=== PATIENT | male | born 1965 | race Caucasian/White ===

== ENCOUNTER 2020-04-06 12:02 | Emergency (ER) | payer BC, SELFPAY ==
[2020-04-06] VITALS (7 sets, daily range): BP systolic 138–156; BP diastolic 68–98; PULSE 55–75; RESP 14–18; TEMP 36.8; O2SAT 96–99
--- NOTE | 2020-04-06 13:51 | ECG_ITS ---
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
--- NOTE | 2020-04-06 14:39 | W.ED.CHESTPA ---
HPI - Chest Pain General: Chief Complaint: Chest Pain Stated Complaint: phy ref/abnormal ekg Time Seen by Provider: 04/06/20 14:12 History of Present Illness: HPI narrative: 84-year-old male comes in complaining of elevated blood pressures. He was seen today at his primary care doctor there were some concerns about his EKG and he was sent here to the ER. He has slightly elevated blood pressure reported at home he is in the 150 systolic range here he is not having any shortness of breath. He does not report any chest discomfort or shortness of breath with exertion. No diaphoresis. No previous cardiac evaluation. His last episode of actual chest discomfort was yesterday, which she correlated with elevated blood pressure. He recently had some blood pressure medication changes as well. Currently on his list he is only taking hydrochlorothiazide for blood pressure. Pertinent past history: other (Hypertension) Onset (ago): day(s) Timing of current episode: episodic and now resolved Onset: during rest Pain location: substernal Pain radiation: none Severity: mild Quality: heaviness Relieving factors: nothing Exacerbating factors: nothing Associated symptoms: Deny abdominal pain, diaphoresis, dyspnea, fever(s), leg edema, nausea, palpitations, sense of impending doom, syncope or vomiting Treatment prior to arrival: none Review of Systems Const: Denies: fever(s) or diaphoresis ENMT: Denies: throat pain, ear or mastoid pain, nasal discharge or nasal congestion Card: Denies: palpitations or syncope Resp: Denies: dyspnea GI: Denies: abdominal pain, nausea or vomiting : Denies: flank pain, dysuria, urinary frequency or urinary urgency Skin/Breast: Denies: rash or pruritus Physical Exam Const: COMMON NORMALS: no acute distress GENERAL APPEARANCE: cooperative and comfortable ORIENTATION/CONSCIOUSNESS: Yes awake, Yes oriented to person, Yes oriented to place and Yes oriented to time HENMT: COMMON NORMALS: normocephalic, atraumatic and hearing grossly normal bilaterally HEAD & SCALP: normocephalic and atraumatic Neck/C-Spine: COMMON NORMALS: no JVD Resp: COMMON NORMALS: normal respiratory effort, No retractions, No use of accessory muscles and clear to auscultation bilaterally AUSCULTATION: clear to auscultation bilaterally Cardio: COMMON NORMALS: no JVD, regular rate, regular rhythm and No murmurs present (Cardio) RATE: regular rate RHYTHM: regular rhythm GI: COMMON NORMALS: Soft to palpation and No hepatosplenomegaly present AUSCULTATION: Yes normoactive bowel sounds PALPATION: Yes Soft to palpation, No Tenderness to palpation present (GI), No Guarding due to palpation present (GI) and Yes No hepatosplenomegaly present Extremity: COMMON NORMALS: normal to inspection, capillary refill normal, no clubbing, cyanosis or edema, no calf tenderness and no pedal edema Neuro: SENSORIUM/ORIENTATION: Yes oriented to person, Yes oriented to place and Yes oriented to time Skin: COMMON NORMALS: no rashes or lesions noted GENERAL SKIN EXAM: no rashes or lesions noted Course Vital Signs: Vital signs: Vital Signs Temperature 98.2 F 04/06/20 12:45 Pulse Rate 75 04/06/20 18:21 Respiratory Rate 17 04/06/20 18:21 Blood Pressure 148/68 04/06/20 18:21 Pulse Oximetry 96 04/06/20 18:21 MDM - Chest Pain MDM Narrative: Medical decision making narrative: Small Q waves in the inferior leads but nothing that looks acute he is asymptomatic this time we will go ahead and discharge him home and get him set up for outpatient sestamibi stress test. And recommend that he stop his hydrochlorothiazide and instead take the isosorbide mononitrate along with aspirin daily. Lab Data: Labs: Lab Results 04/06/20 04/06/20 04/06/20 Range/Units 14:48 14:48 14:48 WBC 7.2 (4.0-10.0) 10^3/ uL RBC 5.18 (4.1-5.3) 10^6/u L Hgb 14.5 (11.7-16.6) g/dL Hct 45.5 (42.0-52.0) % MCV 87.8 (80-94) fL MCH 28.0 (28.0-34.0) pg MCHC 31.9 (30.0-36.0) g/dL RDW 13.1 (12.1-15.1) % Plt Count 271 (130-400) 10^3/c mm MPV 9.8 (7.4-10.4) fL Neut % (Auto) 55.1 % Lymph % (Auto) 33.7 % Mccormick % (Auto) 6.4 % Eos % (Auto) 3.2 % Baso % (Auto) 1.3 % Neut # (Auto) 3.94 (1.8-7.7) 10^3/u L Lymph # (Auto) 2.4 (0.8-4.8) 10^3/u L Mccormick # (Auto) 0.5 (0.2-0.9) 10^3/u L Eos # (Auto) 0.2 (0.0-0.8) 10^3/u L Baso # (Auto) 0.1 (0.0-0.1) 10^3/u L Nucleated RBC % (a uto) 0 % Nucleated RBCs # 0.0 /100WBC Sodium 140 (136-145) mmol/L Potassium 4.8 (3.5-5.1) mmol/L Chloride 104 (98-107) mmol/L Carbon Dioxide 28 (22-29) mmol/L Anion Gap 12.8 (5-19) BUN 21 H (6-20) mg/dL Creatinine 1.6 H (0.7-1.2) mg/dL GFR Calculation 45.3 L (90-130) mL/min Glucose 140 H (65-115) mg/dL Calculated Osmolal ity 295 (285-295) mOsm/k g Calcium 9.5 (8.5-10.5) mg/dL Total Bilirubin 0.4 (0.15-1.2) mg/dL AST 17 (0-40) U/L ALT 14 (0-41) U/L Alkaline Phosphata se 80 (40-130) IU/L Troponin T Baselin e 9 (0-15) ng/L Troponin T 120 Min [place] (0-15) ng/L Delta Troponin T (0-10) ABS# Troponin T Hi Sens 6Hr Troponin T Hi Sens 6Hr Delta Total Protein 7.1 (6.6-8.7) g/dL Albumin 4.4 (3.5-5.2) g/dL Globulin 2.7 (1.3-4.6) g/dL 04/06/20 04/06/20 Range/Units 16:48 20:48 WBC (4.0-10.0) 10^3/ uL RBC (4.1-5.3) 10^6/u L Hgb (11.7-16.6) g/dL Hct (42.0-52.0) % MCV (80-94) fL MCH (28.0-34.0) pg MCHC (30.0-36.0) g/dL RDW (12.1-15.1) % Plt Count (130-400) 10^3/c mm MPV (7.4-10.4) fL Neut % (Auto) % Lymph % (Auto) % [place] % (Auto) % Eos % (Auto) % Baso % (Auto) % Neut # (Auto) (1.8-7.7) 10^3/u L Lymph # (Auto) (0.8-4.8) 10^3/u L [place] # (Auto) (0.2-0.9) 10^3/u L Eos # (Auto) (0.0-0.8) 10^3/u L Baso # (Auto) (0.0-0.1) 10^3/u L Nucleated RBC % (a uto) % Nucleated RBCs # /100WBC Sodium (136-145) mmol/L Potassium (3.5-5.1) mmol/L Chloride (98-107) mmol/L Carbon Dioxide (22-29) mmol/L Anion Gap (5-19) BUN (6-20) mg/dL Creatinine (0.7-1.2) mg/dL GFR Calculation (90-130) mL/min Glucose (65-115) mg/dL Calculated Osmolal ity (285-295) mOsm/k g Calcium (8.5-10.5) mg/dL Total Bilirubin (0.15-1.2) mg/dL AST (0-40) U/L ALT (0-41) U/L Alkaline Phosphata se (40-130) IU/L Troponin T Baselin e (0-15) ng/L Troponin T 120 Min [place] 8.08 (0-15) ng/L Delta Troponin T -0.92 L (0-10) ABS# Troponin T Hi Sens 6Hr Cancelled Troponin T Hi Sens 6Hr Delta Cancelled Total Protein (6.6-8.7) g/dL Albumin (3.5-5.2) g/dL Globulin (1.3-4.6) g/dL Discharge Plan Discharge Patient Disposition: Home Clinical Impression: Atypical chest pain Condition: Stable Prescriptions: New isosorbide mononitrate 30 mg tablet extended release 24 hr 30 mg PO DAILY Qty: 14 RF: 0 aspirin 81 mg tablet,delayed release (DR/EC) 81 mg PO DAILY Qty: 30 RF: 0 Discontinued hydrochlorothiazide 25 mg tablet 25 mg PO DAILY RF: 0 No Action allopurinol 100 mg tablet 100 mg PO DAILY RF: 0 simvastatin 20 mg tablet 20 mg PO DAILY RF: 0 Discharge Orders: Discharge Order (Routine); Ordered 04/06/20 Ordered By: Daniel Gallegos Discharge Diet: Usual diet Discharge Activity: Limit activity as instructed Activity Restrictions/Additional Instructions: Case management will call to arrange for an outpatient graded exercise stress test Coding Level of Care Code ED Lipstick Molder for Luis Fwfrancis Exam Comprehensive
[2020-04-06 14:57] LABS: Basophils # 0.1 10^3/uL (0.0-0.1); Basophils % 1.3 %; Eosinophils # 0.2 10^3/uL (0.0-0.8); Eosinophils % 3.2 %; Hematocrit 45.5 % (42.0-52.0); Hemoglobin 14.5 g/dL (11.7-16.6); Lymphocytes # 2.4 10^3/uL (0.8-4.8); Lymphocytes % 33.7 %; Mean Corpuscular HGB Conc 31.9 g/dL (30.0-36.0); Mean Corpuscular Volume 87.8 fL (80-94); Mean Platelet Volume 9.8 fL (7.4-10.4); Monocytes # 0.5 10^3/uL (0.2-0.9); Monocytes % 6.4 %; Neutrophils # 3.94 10^3/uL (1.8-7.7); Neutrophils % 55.1 %; Nucleated Red Blood Cells % 0 %; Platelet Count 271 10^3/cmm (130-400); Red Blood Count 5.18 10^6/uL (4.1-5.3); Red Cell Distribution Width 13.1 % (12.1-15.1); White Blood Count 7.2 10^3/uL (4.0-10.0)
[2020-04-06 15:14] LABS: Alanine Aminotransferase 14 U/L (0-41); Albumin Level 4.4 g/dL (3.5-5.2); Alkaline Phosphatase 80 IU/L (40-130); Anion Gap 12.8 (5-19); Aspartate Amino Transferase 17 U/L (0-40); Blood Urea Nitrogen 21 mg/dL (6-20); Calcium 9.5 mg/dL (8.5-10.5); Carbon Dioxide 28 mmol/L (22-29); Chloride 104 mmol/L (98-107); Globulin 2.7 g/dL (1.3-4.6); Glomerular Filtration Rate 45.3 mL/min (90-130); Glucose 140 mg/dL (65-115); Osmolality Calculated 295 mOsm/kg (285-295); Potassium 4.8 mmol/L (3.5-5.1); Sodium 140 mmol/L (136-145); Total Bilirubin 0.4 mg/dL (0.15-1.2); Total Protein 7.1 g/dL (6.6-8.7)
[2020-04-06 15:15] LABS: Troponin(5th) Baseline 9 ng/L (0-15)
--- NOTE | 2020-04-06 15:51 | ECG_ITS ---
[facility] Test Date: 2020-04-06 Pat Name: Russell Hwang Department: Room: Gender: Male Medical Device Sales: : 1965 Requested By: Daniel Grewal Order Number: [id number] Reading MD: JESUS TAVAREZ Measurements Intervals Fine Rate: 57 P: 40 MN: 137 QRS: 55 QRSD: 118 T: 41 QT: 403 QTc: 393 Interpretive Statements SINUS BRADYCARDIA POSSIBLE INFERIOR MYOCARDIAL INFARCTION , PROBABLY OLD [30 ms Q WAVE IN II/aVF] Compared to ECG 04/06/2020 12:43:04 Myocardial infarct finding now present Electronically Signed On 04-06-2020 17:32:09 SPECIAL POLICE by JESUS TAVAREZ [id number]
[2020-04-06 17:31] LABS: Troponin 5 2HR 8.08 ng/L (0-15); Troponin 5 2HR Delta -0.92 ABS# (0-10)
== END 2020-04-06 18:23 | disposition home or self-care (01) ==
PROVIDERS: Emergency Provider Family Medicine
DX: R07.89 Other chest pain (principal)
CPT/HCPCS: 12345; 80053; 84484; 85025; 93005; 99282; 99283

== ENCOUNTER 2020-06-15 12:14 | Outpatient (CLI) | payer BC, SELFPAY ==
[2020-06-15 12:18] VITALS: BMI 17.2
--- NOTE | 2020-06-15 12:20 | ECG_ITS ---
[facility] Test Date: 2020-06-15 Pat Name: Russell Hwang Department: Room: Gender: Male Manager Of Organizational Development: : 1965 Requested By: Chanda Sims Order Number: [id number] Jennifer MD: Karen Briceno M.D. Interpretive Statements NAME OF STUDY: TREADMILL STRESS TEST INDICATION: Chest Pain PROCEDURE: At the baseline, the patient's blood pressure was 152/99 with a heart rate of 86. The baseline electrocardiogram showed normal sinus rhythm with normal ST-Ts.. The patient exercised for 8 minutes and 28 seconds on a standard Zaid protocol. Patient attained a maximum heart rate of 171 beats per minute(103% of the maximum predicted heart rate) with a blood pressure at the peak exercise of mm Hg. The EKG at the peak exercise revealed no significant changes. Patient did not have any chest pain or any significant cardiac arrhythmias with the exercise During the recovery phase, there were no new changes. Blood pressure at the end of the recovery phase was 148/92 mm Hg with a heart rate of 98 per minute. CONCLUSION: 1. No significant EKG changes with the treadmill exercise 2. No exercise-induced chest pain or cardiac arrhythmia 3. Fair exercise tolerance, attained a maximum of 10.2 METs 4. No significant coronary ischemia, based on the above finding Electronically Signed On 06-18-2020 10:01:19 PHOTOENGRAVING HELPER by Karen Briceno M.D. [email or web address]
[2020-06-15 13:04] VITALS: BP 148/92; PULSE 98
== END 2020-06-15 12:15 | disposition home or self-care (01) ==
LOC: CDL 12:15
PROVIDERS: PCP Internal Medicine; Visit Provider Internal Medicine
DX: R07.9 Chest pain, unspecified (principal)
CPT/HCPCS: 93017

== ENCOUNTER → 2020-11-29 14:23 | Outpatient (BNVA) | payer BC, SELFPAY | PROVIDERS: PCP Internal Medicine; Visit Provider Nurse Practitioner Family | DX: Z20.822 Contact with and (suspected) exposure to COVID-19 (principal) | CPT/HCPCS: 87635 ==

== ENCOUNTER 2021-07-12 14:26 | Outpatient (CLI) | payer BC, SELFPAY ==
--- NOTE | 2021-07-12 14:52 | XRR_ITS ---
PROCEDURE INFORMATION: Exam: XR Abdomen Exam date and time: 07/12/2021 2:52 PM Age: 55 years old Clinical indication: Generalized abdominal pain for 1 week; kidney area towards back. TECHNIQUE: Imaging protocol: XR of the abdomen. Views: Frontal supine view of the abdomen. 1 View. COMPARISON: No relevant prior studies available. FINDINGS: Gastrointestinal tract: No evidence of small-bowel obstruction. Intraperitoneal space: No gross free air. Organs: No gross renal stone. The renal shadows are partially obscured by overlying bowel gas/stool. Vasculature: Probable small phleboliths in the right pelvis. Bones/joints: No gross acute fracture. XR/XR KUB [id number] IMPRESSION: 1. No gross renal stone. The renal shadows are partially obscured by overlying bowel gas/stool. 2. If there is continued clinical concern, recommend CT.
== END 2021-07-12 14:27 | disposition home or self-care (01) ==
PROVIDERS: PCP Family Medicine; Visit Provider Family Medicine
DX: R10.9 Unspecified abdominal pain (principal)
CPT/HCPCS: 74018

== ENCOUNTER → 2024-03-18 10:49 | Outpatient (BNVA) | payer BC, SELFPAY | PROVIDERS: PCP Family Medicine; Visit Provider Family Medicine | DX: S89.92XA Unspecified injury of left lower leg, initial encounter (principal); X58.XXXA Exposure to other specified factors, initial encounter | CPT/HCPCS: 73590 ==